=== PATIENT | male | born 1990 | race Caucasian/White ===

== ENCOUNTER 2017-07-08 19:43 | Emergency (ER) | payer BC ==
[~2017-07-08] VITALS: Ht 177.8 cm; Wt 74.8 kg
[2017-07-08 19:57] VITALS: BP 147/79
--- NOTE | 2017-07-08 20:13 | NUR ---
AMBULATED TO ER BED 3
--- NOTE | 2017-07-08 20:30 | NUR ---
Patient being evaluated by DR. SANTIAGO at bedside.
--- NOTE | 2017-07-08 20:30 | NUR ---
26Y/M PT. PRESENTS TO ED WITH C/O RASHES ALL OVER THE BODY, STARTED 3 DAYS AGO, LEFT GROIN PAIN, FOR 2 WEEKS. AAO X4, AMBULATORY WITH STEADY GAIT. RESPIRTAIONS ROOM AIR, EVEN AND UNLABORED. GENERALIZED RASH NOTED. NO S/SX OF DISTRESS AT THIS TIME. ER MD MADE AWARE OF PT. STATUS.
--- NOTE | 2017-07-08 21:15 | NUR ---
Patient discharged with v/s stable. Written and verbal after care instructions given and explained. Patient alert, oriented and verbalized understanding of instructions. Ambulatory with steady gait. All questions addressed prior to discharge. ID band removed. Patient advised to follow up with PMD. Rx of VALACYCLOVIR 1 G, NORCO10/325 MG, GABAPENTIN 300 MG, CAPSAICIN 0.075% given. Patient educated on indication of medication including possible reaction and side effects. Opportunity to ask questions provided and answered.
[2017-07-08 21:17] VITALS: BP 130/70
== END 2017-07-08 21:15 | disposition home or self-care (01) ==
LOC: MED 19:43
DX: B02.9 Zoster without complications (principal); K40.90 Unilateral inguinal hernia, without obstruction or gangrene, not specified as recurrent
CPT/HCPCS: 99283